=== PATIENT | male | born 1995 | race Caucasian/White ===

== ENCOUNTER 2021-06-25 22:37 | Emergency (ER) | payer OTHER ==
[2021-06-25 23:29] LABS: BASOPHIL 0.6 % (0-2); EOSINOPHIL 3.6 % (0-5); HCT 40.9 % (42.0-52.0); HGB 13.8 g/dl (13.2-18.0); LYMPHOCYTE 17.7 % (15-48); MCH 32.1 pg (25.0-31.0); MCHC 33.7 g/dL (32.0-36.0); MCV 95.1 fL (78.0-100.0); MONOCYTE 6.3 % (0-12); MPV 12.2 fL (6.0-9.5); NEUTROPHIL 71.5 % (41-80); NRBC 0; PLT 177 K/uL (150-400); RDW 12.5 % (11.5-14.0); WBC 6.7 K/uL (4.0-10.5)
[2021-06-25 23:37] LABS: ALBUMIN 4.2 g/dL (3.4-5.0); BILIRUBIN - TOTAL 0.3 mg/dL (0.2-1.0); BUN/CREAT RATIO (CALC) 16.8 RATIO; CREATININE 1.07 mg/dL (0.67-1.17); GLOBULIN (CALCULATION) 2.5 g/dL; POTASSIUM 4.5 mmol/L (3.5-5.1); TOTAL PROTEIN 6.7 g/dL (6.4-8.2)
== END 2021-06-26 00:42 | disposition home or self-care (01) ==
LOC: FER 22:37
PROVIDERS: Emergency Medicine Emergency Medical Services
DX: R07.89 Other chest pain (principal); R06.02 Shortness of breath; R04.2 Hemoptysis; Z87.891 Personal history of nicotine dependence
CPT/HCPCS: 36415; 71045; 80053; 82550; 83690; 84484; 85025; 85379; 93005; 94640; 94664; C9113; J1885